=== PATIENT | female | born 1990 | race Caucasian/White ===

== ENCOUNTER 2021-10-11 13:33 | Emergency (ER) | payer MEDICAID ==
[~2021-10-11] VITALS: Ht 177.8 cm; Wt 81.0 kg
[2021-10-11 14:08] VITALS: BP 123/69
[2021-10-11] MEDS ORDERED: SULF1TAB49 PO (16:18)
== END 2021-10-11 16:50 | disposition home or self-care (01) ==
LOC: ER 13:34
DX: L02.211 Cutaneous abscess of abdominal wall (principal); F11.10 Opioid abuse, uncomplicated; R11.2 Nausea with vomiting, unspecified
CPT/HCPCS: 99283

== ENCOUNTER 2023-12-04 22:37 | Emergency (ER) | payer MEDICAID ==
[~2023-12-04] VITALS: Ht 180.3 cm; Wt 108.4 kg
[2023-12-04 22:40] VITALS: BP 135/100; TEMP 97; O2SAT 100
[2023-12-04] MEDS: oxyCODONE/APAP 10/325mg tablet PO STA (23:51)
[2023-12-05] MEDS ORDERED: IBUP-1984 PO (00:18)
[2023-12-05 00:24] VITALS: PULSE 70; RESP 16
== END 2023-12-05 00:25 | disposition home or self-care (01) ==
LOC: ER 22:38
DX: M54.59 Other low back pain (principal); Z79.899 Other long term (current) drug therapy
CPT/HCPCS: 72100; 72170; 99283; 99284

== ENCOUNTER 2024-02-01 14:22 | Emergency (ER) | payer MEDICAID ==
[~2024-02-01] VITALS: Ht 177.8 cm; Wt 87.5 kg
[2024-02-01 14:25] VITALS: TEMP 97.8
[2024-02-01 17:50] LABS: BASOPHILS % (AUTO) 0.3 % (0-1); EOSINOPHILS # (AUTO) 0.2 X10'3 (0-0.9); EOSINOPHILS % (AUTO) 1.8 % (0-6); HEMATOCRIT 36.2 % (35.0-45.0); HEMOGLOBIN 11.8 g/dl (12.0-16.0); LYMPHOCYTES # (AUTO) 2.4 X10'3 (1.1-4.8); LYMPHOCYTES % (AUTO) 25.8 % (21-51); MEAN CORPUSCULAR HEMOGLOBIN 27.9 PG (27.0-31.0); MEAN CORPUSCULAR HGB CONC 32.6 g/dL (33.0-36.5); MEAN CORPUSCULAR VOLUME 85.7 FL (78-98); MEAN PLATELET VOLUME 7.8 FL (7.4-10.4); MONOCYTES # (AUTO) 0.9 X10'3 (0-0.9); MONOCYTES % (AUTO) 9.5 % (2-12); NEUTROPHILS # (AUTO) 5.8 X10'3 (1.8-7.7); NEUTROPHILS % (AUTO) 62.6 % (42-75); PLATELET COUNT 249 X10'3 (140-440); RED BLOOD COUNT 4.23 X10'6 (4.20-5.60); RED CELL DISTRIBUTION WIDTH 13.6 % (11.5-14.5); WHITE BLOOD COUNT 9.3 X10'3 (4.5-11.0)
[2024-02-01 18:00] LABS: HCG SERUM QL NEGATIVE
[2024-02-01 18:01] LABS: D-DIMER 0.54 MG/L FEU (0-0.50)
[2024-02-01 18:17] LABS: ALBUMIN 3.2 G/DL (3.4-5.0); ANION GAP 5 (8-16); BLOOD UREA NITROGEN 22 MG/DL (7-18); BUN/CREATININE RATIO 25.3 (10.0-20.0); CALCIUM 8.4 MG/DL (8.5-10.1); CHLORIDE 107 MMOL/L (99-107); CREATININE 0.87 MG/DL (0.40-0.90); GLUCOSE 94 MG/DL (70-104); POTASSIUM 3.9 MMOL/L (3.5-5.1); PRO BRAIN NATRIURETIC PEPTIDE 64 PG/ML (0-125); SODIUM 142 MMOL/L (135-145); TOTAL CARBON DIOXIDE 29.9 MMOL/L (24-32); eCRCL 98 ML/MIN; eGFR 74 ML/MIN
[2024-02-01] MEDS: aspirin 81mg tab.chew PO ONE (18:17)
[2024-02-01] MEDS: CefTRIAXone 2gm/D5W 50ml BAG 50 ML IV ONE (18:17)
[2024-02-01] MEDS ORDERED: iohexol 350MG/ML 100ml bottle IV ONE (19:05)
[2024-02-01] MEDS: normal saline 1000ML IV soln IVB ONE (20:37)
[2024-02-01 21:19] LABS: BILIRUBIN,URINE NEGATIVE (Neg); CLARITY,URINE SLIGHTLY CLOUDY (Clear); COLOR,URINE YELLOW (Yellow); GLUCOSE, URINE NEGATIVE (Neg); KETONES,URINE NEGATIVE (Neg); LEUKOCYTE ESTERASE ,URINE NEGATIVE (Neg); NITRITES, URINE POSITIVE (Neg); OCCULT BLOOD,URINE NEGATIVE (Neg); PH,URINE 5.5 (4.8-8.0); PROTEIN,URINE NEGATIVE (Neg); UROBILINOGEN,URINE 0.2 E.U/dL (0.2-1.0)
[2024-02-01 21:26] LABS: UA COLLECTION TYPE CLN CATCH MIDSTREAM
[2024-02-01 21:27] LABS: BACTERIA,URINE 1+ /HPF (Neg); MUCUS STRANDS MANY /LPF (Neg); SQUAMOUS EPITHELIAL CELL,UR MODERATE /LPF (FEW); TRANSITIONAL EPI CELLS,URINE FEW /HPF
[2024-02-01 21:29] LABS: URINE AMPHETAMINE SCREEN POSITIVE (Neg); URINE BARBITUATE SCREEN NEGATIVE (Neg); URINE BENZODIAZEPINES SCREEN NEGATIVE (Neg); URINE CANNABINOID SCREEN POSITIVE (Neg); URINE COCAINE SCREEN NEGATIVE (Neg); URINE METHADONE SCREEN NEGATIVE (Neg); URINE OPIATE SCREEN NEGATIVE (Neg); URINE PHENCYCLIDINE SCREEN NEGATIVE (Neg)
[2024-02-01 23:06] VITALS: BP 148/82; PULSE 84; RESP 16; O2SAT 98
== END 2024-02-01 23:07 | disposition home or self-care (01) ==
LOC: ER 14:23
DX: R60.1 Generalized edema (principal); R51.9 Headache, unspecified; F19.10 Other psychoactive substance abuse, uncomplicated; F15.10 Other stimulant abuse, uncomplicated; F12.10 Cannabis abuse, uncomplicated
CPT/HCPCS: 36415; 71045; 71275; 80048; 80305; 81001; 83605; 83735; 83880; 84145; 84484; 84703; 85025; 85379; 87040; 93005; 96365; 99285; J0696; J3490; Q9967